=== PATIENT | female | born 1995 | race African-American/Black ===

== ENCOUNTER 2017-10-02 11:29 | Emergency (ER) | payer OTHER ==
[~2017-10-02] VITALS: Ht 162.6 cm; Wt 122.5 kg
--- NOTE | ~2017-10-02 | EKG ---
[place] [address] [facility] [place] [address] ELECTROCARDIOGRAM REPORT Name: VALENTIN FORTE Room #: DEP [facility]#: [id number] Admission: 10/02/17 Attend Phys: Discharge: 10/02/17 Date of : [birth year] Report #: [id number] THIS REPORT FOR: //name// [facility] ED Test Date: 2017-10-02 Test Time: 12:47:19 Pat Name: VALENTIN FORTE Department: Room: Gender: F Human Resources Assistant Manager: BRITNEY : 1995 Requested By: Janette Levine Order Number: [id number] MD: Eduar Guardado Measurements Intervals [place] Rate: 81 P: 40 RI: 154 QRS: -4 QRSD: 100 T: 6 QT: 377 QTc: 438 Interpretive Statements Sinus rhythm Borderline T abnormalities, diffuse leads No previous ECG available for comparison Electronically Signed On 10-03-2017 7:53:58 [employer] by Eduar Guardado [email or web address] <ELECTRONICALLY SIGNED> By: Eduar Guardado MD, [facility] 10/03/17 0753 [id number] Eduar Guardado MD, FACC /EPI
[~2017-10-02 11:29] MED LIST: MACROBID 100 M100 M1 PO
[2017-10-02 12:49] LABS: URINE BILIRUBIN NEGATIVE (Negative); URINE BLOOD NEGATIVE (Negative); URINE CLARITY CLEAR; URINE COLOR YELLOW; URINE GLUCOSE-RANDOM* NEGATIVE (Negative); URINE KETONES NEGATIVE (Negative); URINE LEUKOCYTES NEGATIVE (Negative); URINE NITRITE NEGATIVE (Negative); URINE PROTEIN (DIPSTICK) NEGATIVE (Negative); URINE SPECIFIC GRAVITY 1.015 (1.005-1.035); URINE UROBILINOGEN 0.2 E.U./dl (0.2-1.0)
[2017-10-02 12:58] LABS: HEMATOCRIT 35.5 % (37.0-47.0); HEMOGLOBIN 11.6 gm/dL (12.0-15.0); MCH 21.6 pg (26.0-34.0); MCHC 32.6 g/dL (28.0-37.0); MCV 66.3 fL (80.0-100.0); RBC 5.36 mil/uL (4.20-5.00); RDW 17.4 % (10.5-14.5); WBC 8.3 thou/uL (4.0-11.0)
[2017-10-02 13:05] LABS: CALCIUM 9.3 mg/dL (8.5-10.1); CREATININE 0.8 mg/dL (0.6-1.0); POTASSIUM 3.5 mmol/L (3.5-5.1)
[2017-10-02 13:11] LABS: ALBUMIN 3.5 g/dL (3.4-5.0); TOTAL BILIRUBIN 0.2 mg/dL (<0.1-1.0); TOTAL PROTEIN 8.6 g/dL (6.4-8.2)
[2017-10-02] MEDS ORDERED: MECLIZINE HCL25 M1 PO (13:12)
[2017-10-02] MEDS ORDERED: PEPCID20 MG PO (13:12)
[2017-10-02] MEDS ORDERED: CARAFATE 1 GM TA1 G1 PO (13:12)
[2018-04-02] MEDS ORDERED: TESSALON PERLE100 MG PO (10:21)
[2018-04-02] MEDS ORDERED: ROBITUSSIN NIG237 ML PO (10:21)
[2018-04-02] MEDS ORDERED: CLARITIN-D 121 EAC1 PO (10:21)
[2018-04-13] MEDS ORDERED: NEOMYCIN-POLY-7.5 ML OPHTHALMIC (11:16)
[2018-04-13] MEDS ORDERED: ZYRTEC10 MG PO (11:16)
== END 2017-10-02 13:46 | disposition home or self-care (01) ==
LOC: ER 11:29
PROVIDERS: Physician Assistant
DX: R42 Dizziness and giddiness (principal); K29.00 Acute gastritis without bleeding; Z88.6 Allergy status to analgesic agent

== ENCOUNTER 2018-08-31 17:09 | Emergency (ER) | payer OTHER ==
[~2018-08-31] VITALS: Ht 162.6 cm; Wt 117.9 kg
[~2018-08-31 17:09] MED LIST changes: +CARAFATE 1 GM TA1 G1 PO; +CLARITIN-D 121 EAC1 PO; +MECLIZINE HCL25 M1 PO; +NEOMYCIN-POLY-7.5 ML OPHTHALMIC; +PEPCID20 MG PO; +ROBITUSSIN NIG237 ML PO; +TESSALON PERLE100 MG PO; +ZYRTEC10 MG PO
[2018-08-31 17:35] LABS: URINE BILIRUBIN NEGATIVE (Negative); URINE BLOOD 3+ (Negative); URINE CLARITY CLEAR; URINE COLOR YELLOW; URINE GLUCOSE-RANDOM* NEGATIVE (Negative); URINE KETONES NEGATIVE (Negative); URINE LEUKOCYTES-REFLEX NEGATIVE (Negative); URINE NITRITE-REFLEX NEGATIVE (Negative); URINE PROTEIN (DIPSTICK) NEGATIVE (Negative); URINE SPECIFIC GRAVITY 1.025 (1.005-1.035); URINE UROBILINOGEN 0.2 E.U./dl (0.2-1.0)
[2018-08-31 17:48] LABS: CASTS None Seen /LPF (None Seen); CRYSTALS None Seen /LPF (None Seen); SQUAMOUS 0-3 Few /LPF (0-3); URINE RBC >20 Many /HPF (0-2)
[2018-08-31 17:49] LABS: BACTERIA-REFLEX 1-9 Few /HPF (None Seen); URINE WBC-REFLEX 0-5 Rare /HPF (0-5)
[2018-08-31 18:21] LABS: BASOPHILS 0.8 % (0.0-2.0); EOSINOPHILS 1.8 % (0.0-3.0); HEMATOCRIT 38.7 % (37.0-47.0); HEMOGLOBIN 13.1 gm/dL (12.0-15.0); LYMPHOCYTES 28.9 % (24.0-44.0); MCH 23.1 pg (26.0-34.0); MCHC 33.8 g/dL (28.0-37.0); MCV 68.2 fL (80.0-100.0); MONOCYTES 3.7 % (1.0-8.0); PLATELET COUNT 311 thou/uL (150-400); POLYS 64.8 % (36.0-66.0); RBC 5.68 mil/uL (4.20-5.00); RDW 16.6 % (10.5-14.5); WBC 10.8 thou/uL (4.0-11.0)
[2018-08-31 18:28] LABS: CALCIUM 9.5 mg/dL (8.5-10.1); CREATININE 0.8 mg/dL (0.6-1.0); POTASSIUM 3.4 mmol/L (3.5-5.1)
[2018-08-31 18:34] LABS: ALBUMIN 3.8 g/dL (3.4-5.0); TOTAL BILIRUBIN 0.3 mg/dL (<0.1-1.0); TOTAL PROTEIN 9.4 g/dL (6.4-8.2)
[2018-08-31] MEDS ORDERED: FLAGYL500 M1 PO (19:00)
[2018-08-31 19:32] LABS: ANISOCYTOSIS 1+
[2018-08-31 20:24] VITALS: BP 132/88
== END 2018-08-31 20:25 | disposition home or self-care (01) ==
LOC: ER 17:09
PROVIDERS: Physician Assistant
DX: N76.0 Acute vaginitis (principal); B96.89 Other specified bacterial agents as the cause of diseases classified elsewhere; N93.9 Abnormal uterine and vaginal bleeding, unspecified; Z88.6 Allergy status to analgesic agent; Z88.8 Allergy status to other drugs, medicaments and biological substances

== ENCOUNTER 2020-09-24 21:45 | Emergency (ER) | payer OTHER ==
[~2020-09-24] VITALS: Ht 162.6 cm; Wt 130.2 kg
[~2020-09-24 21:45] MED LIST changes: +FLAGYL500 M1 PO
[2020-09-24] MEDS ORDERED: PNV 29-1 TABLE1 EACH PO (21:52)
[2020-09-24] MEDS ORDERED: LEVOTHYROXINE75 MCG PO (21:52)
[2020-09-24] MEDS ORDERED: IRON325 PO (21:52)
[2020-09-24 22:47] LABS: URINE BILIRUBIN NEGATIVE (Negative); URINE BLOOD 1+ (Negative); URINE CLARITY CLEAR; URINE COLOR YELLOW; URINE GLUCOSE-RANDOM* NEGATIVE (Negative); URINE KETONES NEGATIVE (Negative); URINE LEUKOCYTES-REFLEX NEGATIVE (Negative); URINE NITRITE-REFLEX NEGATIVE (Negative); URINE PROTEIN (DIPSTICK) NEGATIVE (Negative); URINE UROBILINOGEN 0.2 E.U./dl (0.2-1.0)
[2020-09-24 23:01] LABS: HEMATOCRIT 36.1 % (37.0-47.0); HEMOGLOBIN 11.3 gm/dL (12.0-15.0); MCH 22.5 pg (26.0-34.0); MCHC 31.2 g/dL (28.0-37.0); MCV 72.1 fL (80.0-100.0); RBC 5.01 mil/uL (4.20-5.00); RDW 16.2 % (10.5-14.5); WBC 11.8 thou/uL (4.0-11.0)
[2020-09-24 23:04] LABS: CASTS None Seen /LPF (None Seen); CRYSTALS None Seen /LPF (None Seen); MUCUS 0-3 Light strn/LPF (None Seen); SQUAMOUS 4-10 Moderate /LPF (0-3); URINE RBC 0-2 Rare /HPF (0-2); URINE WBC-REFLEX 0-5 Rare /HPF (0-5)
[2020-09-25 02:01] VITALS: BP 138/75
== END 2020-09-25 02:03 | disposition home or self-care (01) ==
LOC: ER 21:45
PROVIDERS: Emergency Medicine; Nurse Practitioner Family
DX: O20.0 Threatened abortion (principal); Z79.899 Other long term (current) drug therapy; Z88.8 Allergy status to other drugs, medicaments and biological substances; Z3A.01 Less than 8 weeks gestation of pregnancy

== ENCOUNTER 2021-03-07 12:55 | Emergency (ER) | payer OTHER ==
[~2021-03-07 12:55] MED LIST changes: +IRON325 PO; +LEVOTHYROXINE75 MCG PO; +PNV 29-1 TABLE1 EACH PO
[2021-03-07 13:13] LABS: URINE BILIRUBIN NEGATIVE (Negative); URINE BLOOD NEGATIVE (Negative); URINE CLARITY CLEAR; URINE COLOR YELLOW; URINE GLUCOSE-RANDOM* NEGATIVE (Negative); URINE KETONES NEGATIVE (Negative); URINE LEUKOCYTES-REFLEX 1+ (Negative); URINE NITRITE-REFLEX NEGATIVE (Negative); URINE PROTEIN (DIPSTICK) NEGATIVE (Negative); URINE SPECIFIC GRAVITY 1.015 (1.005-1.035); URINE UROBILINOGEN 0.2 E.U./dl (0.2-1.0)
[2021-03-07 13:25] LABS: SQUAMOUS 4-10 Moderate /LPF (0-3)
[2021-03-07 13:27] LABS: BACTERIA-REFLEX 1-9 Few /HPF (None Seen); URINE RBC 1-2 Rare /HPF (NONE SEEN); URINE WBC-REFLEX 0-5 Rare /HPF (0-5)
[2021-03-07 13:32] VITALS: BP 145/83
[2021-03-07] MEDS ORDERED: DOXYCYCLINE 10100 MG PO (15:16)
[2021-03-07] MEDS ORDERED: APAP W/CODEINE1 TA2 PO (15:16)
== END 2021-03-07 15:43 | disposition home or self-care (01) ==
LOC: ER 12:55
PROVIDERS: Physician Assistant
DX: N73.9 Female pelvic inflammatory disease, unspecified (principal); Z79.899 Other long term (current) drug therapy; Z88.8 Allergy status to other drugs, medicaments and biological substances

== ENCOUNTER 2021-06-28 18:53 | Emergency (ER) | payer OTHER ==
[~2021-06-28] VITALS: Ht 162.6 cm; Wt 127.5 kg
[~2021-06-28 18:53] MED LIST changes: +APAP W/CODEINE1 TA2 PO; +DOXYCYCLINE 10100 MG PO
[2021-06-28 19:16] LABS: URINE BILIRUBIN 1+ (Negative); URINE BLOOD NEGATIVE (Negative); URINE CLARITY SL CLOUDY; URINE COLOR YELLOW; URINE GLUCOSE-RANDOM* NEGATIVE (Negative); URINE KETONES 1+ (Negative); URINE NITRITE-REFLEX NEGATIVE (Negative); URINE PROTEIN (DIPSTICK) TRACE (Negative); URINE SPECIFIC GRAVITY 1.025 (1.005-1.035); URINE UROBILINOGEN 0.2 E.U./dl (0.2-1.0)
[2021-06-28 19:21] LABS: URINE LEUKOCYTES-REFLEX 1+ (Negative)
[2021-06-28 19:23] LABS: SQUAMOUS 4-10 Moderate /LPF (0-3)
[2021-06-28 19:24] LABS: CASTS None Seen /LPF (None Seen); CRYSTALS None Seen /LPF (None Seen)
[2021-06-28] MEDS ORDERED: ADDERALL XR 1515 MG PO (20:09)
[2021-06-28] MEDS ORDERED: SERTRALINE HCL100 MG PO (20:09)
[2021-06-28] MEDS ORDERED: CEPHALEXIN500 MG PO (20:31)
[2021-06-28 20:37] VITALS: BP 159/101
== END 2021-06-28 20:38 | disposition home or self-care (01) ==
LOC: ER 18:53
PROVIDERS: Nurse Practitioner Family
DX: N39.0 Urinary tract infection, site not specified (principal); F12.90 Cannabis use, unspecified, uncomplicated; Z88.6 Allergy status to analgesic agent; Z88.8 Allergy status to other drugs, medicaments and biological substances; Z79.899 Other long term (current) drug therapy

== ENCOUNTER 2021-08-21 14:32 | Emergency (ER) | payer OTHER ==
[~2021-08-21] VITALS: Ht 162.6 cm; Wt 127.0 kg
[~2021-08-21 14:32] MED LIST changes: +ADDERALL XR 1515 MG PO; +CEPHALEXIN500 MG PO; +SERTRALINE HCL100 MG PO
[2021-08-21 14:34] VITALS: BP 134/77
[2021-08-21 14:54] LABS: URINE BILIRUBIN NEGATIVE (Negative); URINE BLOOD NEGATIVE (Negative); URINE CLARITY CLEAR; URINE COLOR YELLOW; URINE GLUCOSE-RANDOM* NEGATIVE (Negative); URINE KETONES NEGATIVE (Negative); URINE LEUKOCYTES-REFLEX NEGATIVE (Negative); URINE NITRITE-REFLEX NEGATIVE (Negative); URINE PROTEIN (DIPSTICK) NEGATIVE (Negative); URINE UROBILINOGEN 0.2 E.U./dl (0.2-1.0)
== END 2021-08-21 16:36 | disposition home or self-care (01) ==
LOC: ER 14:32
PROVIDERS: Student in an Organized Health Care Education/Training Program
DX: Z32.01 Encounter for pregnancy test, result positive (principal); Z3A.01 Less than 8 weeks gestation of pregnancy; F12.90 Cannabis use, unspecified, uncomplicated; Z79.899 Other long term (current) drug therapy; Z88.8 Allergy status to other drugs, medicaments and biological substances; Z88.6 Allergy status to analgesic agent

== ENCOUNTER 2021-09-01 20:55 | Emergency (ER) | payer OTHER ==
[~2021-09-01] VITALS: Ht 162.6 cm; Wt 125.7 kg
[2021-09-01 22:06] LABS: ABSOLUTE NEUTROPHILS 7.8 thou/uL (1.4-8.2); BASOPHILS 0.4 % (0.0-2.0); EOSINOPHILS 1.4 % (0.0-3.0); HEMATOCRIT 36.1 % (37.0-47.0); HEMOGLOBIN 11.5 gm/dL (12.0-15.0); LYMPHOCYTES 20.8 % (24.0-44.0); MCH 22.7 pg (26.0-34.0); MCHC 31.9 g/dL (28.0-37.0); MONOCYTES 3.6 % (1.0-8.0); PLATELET COUNT 291 thou/uL (150-400); POLYS 73.8 % (36.0-66.0); RBC 5.08 mil/uL (4.20-5.00); RDW 18.6 % (10.5-14.5); WBC 10.6 thou/uL (4.0-11.0)
[2021-09-01 22:11] LABS: CALCIUM 8.6 mg/dL (8.5-10.1); CREATININE 0.7 mg/dL (0.6-1.0); POTASSIUM 3.4 mmol/L (3.5-5.1)
[2021-09-01 22:31] LABS: URINE BILIRUBIN NEGATIVE (Negative); URINE BLOOD NEGATIVE (Negative); URINE CLARITY CLEAR; URINE COLOR YELLOW; URINE GLUCOSE-RANDOM* NEGATIVE (Negative); URINE KETONES 1+ (Negative); URINE LEUKOCYTES-REFLEX NEGATIVE (Negative); URINE NITRITE-REFLEX NEGATIVE (Negative); URINE PROTEIN (DIPSTICK) NEGATIVE (Negative); URINE SPECIFIC GRAVITY 1.025 (1.005-1.035); URINE UROBILINOGEN 0.2 E.U./dl (0.2-1.0)
[2021-09-01 23:01] VITALS: BP 140/75
[2021-09-02 00:42] LABS: ANISOCYTOSIS 2+; HYPOCHROMASIA 2+; MICROCYTES 1+
== END 2021-09-01 23:09 | disposition home or self-care (01) ==
LOC: ER 20:55
PROVIDERS: Nurse Practitioner
DX: Z32.01 Encounter for pregnancy test, result positive (principal); F12.90 Cannabis use, unspecified, uncomplicated; Z98.890 Other specified postprocedural states; Z79.899 Other long term (current) drug therapy; Z88.8 Allergy status to other drugs, medicaments and biological substances; Z88.6 Allergy status to analgesic agent